=== PATIENT | male | born 1995 | race Two or more races ===

== ENCOUNTER 2024-11-07 22:58 | Emergency (ER) | payer OTHER ==
[~2024-11-07] VITALS: Ht 185.4 cm; Wt 104.5 kg
[2024-11-07] MEDS: KETOROLAC TROMETH 30 MG/ML 1ML VIAL IM ONE (23:34)
--- NOTE | 2024-11-08 01:04 | ED.PDOC ---
Musculoskeletal HPI Comments Patient complaining of left lower leg pain. Patient states he was doing squats, and felt a pop sensation in his left calf. States he was not able to bear weight after the injury. Concerned for possible tendon rupture. Chief Complaint: Lower Extremity Time Seen by MD: 23:07 Reviewed Notes: Nurses Notes Allergies: Coded Allergies: NO KNOWN ALLERGIES (Unverified , 11/07/24) Information Source: Patient Mode of Arrival: EMS Location: Left Timing: Hours Past Medical History PAST MEDICAL HISTORY: Denies Surgical History: Denies all surgeries Constitutional: denies: chills, diaphoresis, fatigue, fever, malaise, sweats, weakness, others EENTM: denies: blurred vision, double vision, ear bleeding, ear discharge, ear drainage, ear pain, ear ringing, eye pain, eye redness, hearing loss, mouth pain, mouth swelling, nasal discharge, nose bleeding, nose congestion, nose pain, photophobia, tearing, throat pain, throat swelling, voice changes, others Respiratory: denies: cough, hemoptysis, orthopnea, SOB at rest, shortness of breath, SOB with excertion, stridor, wheezing, others Cardiovascular: denies: chest pain, dizzy spells, diaphoresis, Dyspnea on exertion, edema, irregular heart beat, left arm pain, lightheadedness, palpitations, PND, syncope, others Gastrointestinal: denies: abdomen distended, abdominal pain, blood streaked bowels, constipated, diarrhea, dysphagia, difficulty swallowing, hematemesis, melena, nausea, poor appetite, poor fluid intake, rectal bleeding, rectal pain, vomiting, others Genitourinary: denies: burning, dysuria, flank pain, frequency, hematuria, incontinence, penile discharge, penile sore, pain, testicle pain, testicle swelling, urgency, others Neurological: denies: dizziness, fainting, headache, left sided numbness, left sided weakness, numbness, paresthesia, pre-existing deficit, right sided numbness, right sided weakness, seizure, speech problems, tingling, tremors, weakness, others Musculoskeletal: reports: muscle pain, muscle stiffness; denies: back pain, gout, joint pain, joint swelling, neck pain, others Integumetry: denies: bruises, change in color, change in hair/nails, dryness, laceration, lesions, lumps, rash, wounds, others Allergic/Immunocompromised: denies: Difficulty Healing, Frequent Infections, Hives, Itching, others Physical Exam General Appearance: No Apparent Distress, Normal HEENT: Normal ENT Inspection, Pharynx Normal, TMs Normal Neck: Full Range of Motion, Non-Tender, Normal, Normal Inspection Respiratory: Chest Non-Tender, Lungs Clear, No Accessory Muscle Use, No Respiratory Distress, Normal Breath Sounds Cardiovascular: No Edema, No JVD, No Murmur, No Gallop, Normal Peripheral Pulses, Regular Rate/Rhythm Breast Exam: Deferred Gastrointestinal: No Organomegaly, Non Tender, No Pulsatile Mass, Normal Bowel Sounds, Soft Genitalia: Deferred Pelvic: Deferred Rectal: Deferred Extremities: No calf tenderness, Normal capillary refill, Normal inspection, Normal range of motion, Non-tender, No pedal edema Musculoskeletal : Location: Left Extremity Location: Leg (Positive Figueroa test of the left calf) Apperance: Normal Neurologic: Alert, marine transport professionals II-XII nml as Tested, No Motor Deficits, Normal Affect, Normal Mood, No Sensory Deficits Cerebellar Function: Normal Reflexes: Normal Skin: Dry, Normal Color, Warm Lymphatic: No Adenopathy Was a procedure done? Was a procedure done?: No Differential Diagnosis EXT Differential Diagnosis: Deep Vein Thrombosis, Compartment Syndrome, Fracture, Sprain, Dislocation X-Ray, Labs, Meds, VS Vital Signs Date Time Temp Pulse Resp B/P (MAP) Pulse Ox O2 Delivery O2 Flow Rate FiO2 11/07/24 23:10 98.9 103 18 137/86 (103) 99 98.9 Current Medications Medications (Trade) Dose Ordered Sig/Shu Route Start Time Stop Time Status Last Admin Ketorolac Tromethamine (Toradol Injection) 30 mg ONCE ONCE IM 11/07/24 23:15 11/07/24 23:16 DC 11/07/24 23:34 X-Ray, Labs, Meds, VS Comment CT of the left lower extremity shows possible rupture in the distal Achilles Pending radiology review Patient will be discharged home in walking boot and crutches Advised to follow up with the worker's comp specialist, patient was advised he may require MRI for further evaluation. Time of 1ST Reevaluation: 01:47 Reevaluation 1ST: Unchanged Patient Education/Counseling: Diagnosis, Treatment, Need For Follow Up (Follow up with the worker's comp specialist next available appointment) Family Education/Counseling: Diagnosis Departure 1 Departure Time of Disposition: 01:32 Impression: Primary Impression: Achilles rupture, left Qualified Codes: S86.012A - Strain of left Achilles tendon, initial encounter Disposition: HOME / SELF CARE / HOMELESS Condition: Fair e-Prescriptions Hydrocodone-Acetaminophen (Hydrocodone Bitartrate/AC 5-325 mg) 1 Tab Tab 1 TAB PO TID PRN, #24 TAB Prov: JHONATAN MEEK 11/08/24 Discharged With: Self Critical Care Note Critical Care Time?: No Stability Stability form required: No Heart Score Heart Score: Heart Score Response (Comments) Value History N/A 0 EKG N/A 0 Age N/A 0 Risk Factors N/A 0 Troponin N/A 0 Total 0 JHONATAN MEEK November 08, 2024 01:04
[2024-11-08] MEDS ORDERED: HYDR-4902 PO (01:45)
[2024-11-08 01:50] VITALS: BP 131/84; PULSE 88; RESP 18; TEMP 98.9; O2SAT 99
--- NOTE | 2024-11-08 02:00 | DVH ---
INDICATION: calf pain COMPARISON: None TECHNIQUE: CT of the left lower extremity was performed without contrast. Volume transverse images we re obtained and reconstructed in multiple planes using bone and soft tissue algorithms. Radiation Dose Information: CT Dose: CTDI volume is 8.28 mGy. Dose-length product is 664.05 mGy*cm FINDINGS: Irregular morphology of the aponeurosis and proximal aspect of the Achilles tendon with evidence of p artial disruption and probable associated hematoma. The distal insertion at the level of the calcaneu s appears to be intact. The alignment is otherwise normal. The joint spaces are normal. There is no fracture, dislocation or aggressive osseous lesion. There is no joint effusion. IMPRESSION: 1. Findings consistent with incomplete achilles tendon injury without complete rupture, likely repres enting possible grade [address] scans at this medical facility are performed using dose modulation techniques as appropriat e to a performed exam including the following: Automated exposure control was utilized; adjustment of the MA and/or KV according to patient size; and use of iterative reconstruction technique.
[2024-11-08] MEDS: HYDROcodone-ACET 5/325MG TAB PO ONE (02:08)
== END 2024-11-08 02:09 | disposition home or self-care (01) ==
LOC: ER 22:58 → EDSEX 22:58 → ER 11-08 02:09
DX: S86.012A Strain of left Achilles tendon, initial encounter (principal); X58.XXXA Exposure to other specified factors, initial encounter; Y93.89 Activity, other specified; Y92.89 Other specified places as the place of occurrence of the external cause; Y99.8 Other external cause status
CPT/HCPCS: 73700; 96372; 99285; J1885